=== PATIENT | male | born 1990 | race Caucasian/White ===

== ENCOUNTER 2019-03-25 19:31 | Emergency (ER) | payer OTHER, SELFPAY ==
[2019-03-25 19:32] VITALS: BP 135/85; PULSE 65; RESP 14; TEMP 36.9; O2SAT 100
--- NOTE | 2019-03-25 19:37 | ED.GENADUL_ITS ---
Discharge Plan Disposition Patient Disposition: HOME Condition: Good Discharge Details Chief Complaint: Cellulitis Clinical Impression: Abscess or cellulitis of back Primary Care Provider: [facility] ED Provider: Song Vigil Meds and New Rx's Prescriptions: New cephalexin 500 mg Capsule 500 mg PO Q8H Qty: 15 RF: 0 Discharge Instructions Additional Instructions: Leave dressing in place for 24 hours. May shower after that. Try to leave the wick in for 48 hours. May remove the wick after that. Keep the wound clean, dry, covered. Antibiotic as prescribed for 5 days. Motrin or Tylenol as needed for pain. Follow up with PCP next week if not getting better. Return to ED for fever, chills, worsening pain/swelling/drainage. Referrals: [facility] [Primary Care Provider] - Medical Decision Making Patient with a quarter sized area of firm swelling. There is a little bit of central fluctuance. Suspect will not get a lot of pus from I&D but feel that opening the central area is likely to allow anything that subsequently forms to drain. Discussed risk and benefit with patient. Agreed to proceed with I&D. Low back area prepped with Betadine. Wound area anesthetized with 1% lidocaine with epinephrine. #11 blade used to incise central area. About a 1 cc of thick cottage cheese type material was expressed from the central area. Wound was irrigated. It was then packed with iodoform. Dressing applied. Patient tolerated well. Leave the dressing in place for 24 hours. Try to leave the wick in place for 48 hours. Patient started on Keflex. Wound culture has been sent. Follow-up with primary care next week if not better. Return to ED for fever, chills, worsening pain/swelling/drainage. HPI General Mode of arrival: ambulatory . Date/Time Provider Initiated Documentation: 03/25/19 19:37 . Limitations to Documentation: no limitations . Information obtained by: patient . HPI Narrative: Patient presents to ED with abscess on his lower back. Started about a week ago as a pimple. He has tried squeezing it and has got some material out of it. However, it has continued to get bigger and more painful. He denies fevers or chills. He denies being unwell otherwise. Presents now for evaluation of the area. Related Data Home Medications Medication Instructions Recorded Confirmed cephalexin 500 mg PO Q8H #15 cap 03/25/19 Previous Rx's Medication Instructions Recorded cephalexin 500 mg PO Q8H #15 cap 03/25/19 Allergies Allergy/AdvReac Type Severity Reaction Status Date / Time No Known Allergies Allergy Unverified 03/25/19 19:37 General Stated Complaint: Cellulitis CONNOR: 3 Review of Systems Constitutional Denies chills, Denies fever(s) and Denies weakness Musculoskeletal Denies abnormal gait and Denies numbness Integumentary/Breasts Reports erythema and Reports sores Neurologic Denies abnormal gait, Denies numbness, Denies paresthesias and Denies weakness [facility] Social History Smoking/Tobacco Use Status: Former Tobacco Use Alcohol Intake: current Alcohol Intake frequency: a few times a month Drug use: Never Do you feel safe at home: Yes Do you feel safe in your relationship?: Yes Exam Narrative Exam Narrative: Vitals: Normal Const: WDWN malle in NAD. Neuro: A+O x 3. CN grossly in tact. Normal strength, sensation, gait. Skin: Warm and dry. Area on lower back, midline about level of L3, with erythema and swelling present. Slight central drainage. Course Vital Signs Temperature 98.4 F 03/25/19 19:32 Pulse 65 03/25/19 19:32 Respiratory Rate 14 03/25/19 19:32 Blood Pressure 135/85 03/25/19 19:32 Pulse Oximetry 100 03/25/19 19:32 Temperature 98.4 F 03/25/19 19:32 Temperature Source Skin 03/25/19 19:32 Pulse 65 03/25/19 19:32 Respiratory Rate 14 03/25/19 19:32 Blood Pressure 135/85 03/25/19 19:32 Blood Pressure Position Sitting 03/25/19 19:32 Pulse Oximetry 100 03/25/19 19:32 Oxygen Delivery Method Room Air 03/25/19 19:32 Oxygen Flow Rate 0 03/25/19 19:32 Pain Level 6 03/25/19 19:32 Comment using biol-ease and bacitracin 03/25/19 19:32 Procedures Abscess I/D Site: Back Local Anesthetic: Lidocaine 1% and With Epi Amount of anesthesia used (mL): 1.5 Technique: Incised with #11 Blade Irrigation: Yes Packing used?: Iodoform
[2019-03-25] MEDS: Cephalexin 500 MG CAP PO ×2 (20:10→20:19)
--- NOTE | 2019-03-28 12:27 | W.ED.FU ---
I reviewed wound culture, staph aureus growing that is sensitive to oxacillin. Suspect sensitive to Keflex that was prescribed. I called and spoke with the patient who noted infection was healing well, he had no concerns. I advised the patient to follow-up with his primary or return for any worsening or new concerning symptoms or if infection does not completely resolve by completion of antibiotic.
== END 2019-03-25 20:19 | disposition home or self-care (01) ==
PROVIDERS: Emergency Provider Emergency Medicine
DX: L02.212 Cutaneous abscess of back [any part, except buttock and flank] (principal)
CPT/HCPCS: 10160; 87077; 87070; 87186; 87205

== ENCOUNTER 2019-03-28 22:46 | Emergency (ER) | payer OTHER, SELFPAY ==
[2019-03-28 22:49] VITALS: BP 127/80; PULSE 58; RESP 18; TEMP 36.7; O2SAT 99
--- NOTE | 2019-03-28 22:55 | W.ED.GENAD ---
Discharge Plan Disposition Patient Disposition: HOME Condition: Improving Discharge Details Chief Complaint: Recheck Clinical Impression: Abscess Primary Care Provider: [facility],[place] ED Provider: Claire Lee Home Meds and New Rx's Prescriptions: Continued cephalexin 500 mg Capsule 500 mg PO Q8H Qty: 15 RF: 0 Discharge Instructions Instructions: Abscess (ED) Additional Instructions: Wound appears to be healing well. Continue with wound care as previously advised. Take Keflex as prescribed. If you develop fevers/chills, spreading of redness, increased pain or other new/worsening symptoms please seek care urgently once again. Referrals: [facility] [Primary Care Provider] - Discharge Data Discharge Date/Time-TO BE ENTERED AT DEPARTURE: 03/28/19 23:08 Medical Decision Making Patient presents for help with removal of wick from abscess. Evaluated the wound. Wick appears to have come out. No evidence of retained section. Appears to be healing well. Granulation tissue noted, this is what GF has been trying to removing thinking it was wick. Discussed wound care. Appears to be healing well. Discussed when to seek care urgently once again. He will f/u with PCP. All of questions and concerns were addressed, he is in agreement with this plan. HPI General Mode of arrival: ambulatory. Date/Time Provider Initiated Documentation: 03/28/19 22:47. Limitations to Documentation: no limitations. Information obtained by: patient and family (accompanied by significant other). HPI Narrative: Patient presents for recheck of abscess. Was seen 2 days ago at which time I&D was preformed with wick placement. They were advised to remove wick today but signfiicant other reports that she was unable to remove and came in for assessment. Reports he is feeling well, taking Keflex as prescribed. No fevers/chills, no pain. Related Data Home Medications Medication Instructions Recorded Confirmed cephalexin 500 mg PO Q8H #15 cap 03/25/19 03/28/19 Previous Rx's Medication Instructions Recorded cephalexin 500 mg PO Q8H #15 cap 03/25/19 Allergies Allergy/AdvReac Type Severity Reaction Status Date / Time No Known Allergies Allergy Unverified 03/25/19 19:37 General Stated Complaint: Recheck CONNOR: 4 Review of Systems Constitutional Reports as per HPI, Denies chills and Denies fever(s) Musculoskeletal Reports as per HPI Integumentary/Breasts Reports as per HPI Neurologic Reports as per HPI, Denies sensory deficit and Denies paresthesias [facility] Social History Smoking/Tobacco Use Status: Former Tobacco Use Alcohol Intake: current Alcohol Intake frequency: a few times a month Drug use: Never Do you feel safe at home: Yes Do you feel safe in your relationship?: Yes Exam Const General: cooperative, healthy appearing, comfortable, no acute distress and well developed Nutritional Appearance: average body habitus and well nourished Orientation: alert and awake Resp Effort & Inspection: normal respiratory effort, able to speak in complete sentences and no respiratory distress Cardio Rate: regular rate Rhythm: regular rhythm Skin Wounds: wounds noted (lower back s/p I&D healing well, 8mm in diameter) Neuro General: alert and awake Cognition: normal cognition Speech: speech normal Gait: normal gait Sensory Exam: no sensory deficits noted Psych Appearance: grossly normal and well kempt Mental Status: mental status grossly normal Speech and Movement: speech and movement normal Course Vital Signs Temperature 36.7 C 03/28/19 22:49 Pulse 58 L 03/28/19 22:49 Respiratory Rate 18 03/28/19 22:49 Blood Pressure 127/80 03/28/19 22:49 Pulse Oximetry 99 03/28/19 22:49 Temperature 36.7 C 03/28/19 22:49 Temperature Source Tympanic 03/28/19 22:49 Pulse 58 L 03/28/19 22:49 Respiratory Rate 18 03/28/19 22:49 Respiratory Effort Non-Labored 03/28/19 22:52 Blood Pressure 127/80 03/28/19 22:49 Pulse Oximetry 99 03/28/19 22:49 Oxygen Delivery Method Room Air 03/28/19 22:49 Oxygen Flow Rate 0 03/28/19 22:49 Pain Level 0 03/28/19 22:49
--- NOTE | 2019-03-28 23:06 | ED.GENADUL_ITS ---
Discharge Plan Disposition Patient Disposition: HOME Condition: Improving Discharge Details Chief Complaint: Recheck Clinical Impression: Abscess Primary Care Provider: [facility] ED Provider: Claire Lee Home Meds and New Rx's Prescriptions: Continued cephalexin 500 mg Capsule 500 mg PO Q8H Qty: 15 RF: 0 Discharge Instructions Instructions: Abscess (ED) Additional Instructions: Wound appears to be healing well. Continue with wound care as previously advised. Take Keflex as prescribed. If you develop fevers/chills, spreading of redness, increased pain or other new/worsening symptoms please seek care urgently once again. Referrals: [facility] [Primary Care Provider] - Discharge Data Discharge Date/Time-TO BE ENTERED AT DEPARTURE: 03/28/19 23:08 Medical Decision Making Patient presents for help with removal of wick from abscess. Evaluated the wound. Wick appears to have come out. No evidence of retained section. Appears to be healing well. Granulation tissue noted, this is what GF has been trying to removing thinking it was wick. Discussed wound care. Appears to be healing well. Discussed when to seek care urgently once again. He will f/u with PCP. All of questions and concerns were addressed, he is in agreement with this plan. HPI General Mode of arrival: ambulatory . Date/Time Provider Initiated Documentation: 03/28/19 22:47 . Limitations to Documentation: no limitations . Information obtained by: patient and family (accompanied by significant other) . HPI Narrative: Patient presents for recheck of abscess. Was seen 2 days ago at which time I&D was preformed with wick placement. They were advised to remove wick today but signfiicant other reports that she was unable to remove and came in for assessment. Reports he is feeling well, taking Keflex as prescribed. No fevers/chills, no pain. Related Data Home Medications Medication Instructions Recorded Confirmed cephalexin 500 mg PO Q8H #15 cap 03/25/19 03/28/19 Previous Rx's Medication Instructions Recorded cephalexin 500 mg PO Q8H #15 cap 03/25/19 Allergies Allergy/AdvReac Type Severity Reaction Status Date / Time No Known Allergies Allergy Unverified 03/25/19 19:37 General Stated Complaint: Recheck CONNOR: 4 Review of Systems Constitutional Reports as per HPI, Denies chills and Denies fever(s) Musculoskeletal Reports as per HPI Integumentary/Breasts Reports as per HPI Neurologic Reports as per HPI, Denies sensory deficit and Denies paresthesias [facility] Social History Smoking/Tobacco Use Status: Former Tobacco Use Alcohol Intake: current Alcohol Intake frequency: a few times a month Drug use: Never Do you feel safe at home: Yes Do you feel safe in your relationship?: Yes Exam Const General: cooperative, healthy appearing, comfortable, no acute distress and well developed Nutritional Appearance: average body habitus and well nourished Orientation: alert and awake Resp Effort & Inspection: normal respiratory effort, able to speak in complete sentences and no respiratory distress Cardio Rate: regular rate Rhythm: regular rhythm Skin Wounds: wounds noted (lower back s/p I&D healing well, 8mm in diameter) Neuro General: alert and awake Cognition: normal cognition Speech: speech normal Gait: normal gait Sensory Exam: no sensory deficits noted Psych Appearance: grossly normal and well kempt Mental Status: mental status grossly normal Speech and Movement: speech and movement normal Course Vital Signs Temperature 36.7 C 03/28/19 22:49 Pulse 58 L 03/28/19 22:49 Respiratory Rate 18 03/28/19 22:49 Blood Pressure 127/80 03/28/19 22:49 Pulse Oximetry 99 03/28/19 22:49 Temperature 36.7 C 03/28/19 22:49 Temperature Source Tympanic 03/28/19 22:49 Pulse 58 L 03/28/19 22:49 Respiratory Rate 18 03/28/19 22:49 Respiratory Effort Non-Labored 03/28/19 22:52 Blood Pressure 127/80 03/28/19 22:49 Pulse Oximetry 99 03/28/19 22:49 Oxygen Delivery Method Room Air 03/28/19 22:49 Oxygen Flow Rate 0 03/28/19 22:49 Pain Level 0 03/28/19 22:49
[2019-03-28 23:08] VITALS: BP 127/80; PULSE 58; RESP 18; O2SAT 99
== END 2019-03-28 23:08 | disposition home or self-care (01) ==
PROVIDERS: Emergency Provider Physician Assistant
DX: L02.212 Cutaneous abscess of back [any part, except buttock and flank] (principal)

== ENCOUNTER 2022-06-29 08:22 | Outpatient (CLI) | payer OTHER, SELFPAY ==
--- NOTE | 2022-06-29 08:15 | DI.RAD_ITS ---
Exam(s) XR SHOULDER RT COMPLETE 2+V EXAM: XR SHOULDER RT COMPLETE 2+V CLINICAL HISTORY: right shoulder pain. TECHNIQUE: 2D digital imaging was performed of the right shoulder. Two images were obtained. AP an d axillary views were obtained. COMPARISON: No exams were available for comparison FINDINGS: BONES: No acute fracture is present. No bony destructive lesion is seen. JOINTS: No dislocation present. SOFT TISSUE: Normal. IMPRESSION: Unremarkable radiographs of the right shoulder. DATA REPOSITORY: RADIATION DOSE DELIVERED:
== END 2022-06-29 08:23 | disposition home or self-care (01) ==
LOC: DIORS 08:22
PROVIDERS: Referring Provider Physician Assistant; Visit Provider Student in an Organized Health Care Education/Training Program
DX: M75.21 Bicipital tendinitis, right shoulder (principal); S43.431A Superior glenoid labrum lesion of right shoulder, initial encounter; X58.XXXA Exposure to other specified factors, initial encounter
CPT/HCPCS: 99203; 99204; 73030

== ENCOUNTER → 2022-07-20 14:12 | Outpatient (BNVA) | payer OTHER, SELFPAY | PROVIDERS: Visit Provider Student in an Organized Health Care Education/Training Program | DX: X58.XXXA Exposure to other specified factors, initial encounter (principal); M75.51 Bursitis of right shoulder; S43.431A Superior glenoid labrum lesion of right shoulder, initial encounter; S46.011A Strain of muscle(s) and tendon(s) of the rotator cuff of right shoulder, initial encounter | CPT/HCPCS: 99214 ==

== ENCOUNTER 2022-11-10 05:59 | Day surgery (SDC) | payer OTHER, SELFPAY ==
--- NOTE | 2022-11-09 18:39 | W.ANESPRE ---
General Info Date of Service Date Performed: 11/10/22 Height: 5 ft 8 in Weight: 68.492 kg Body Mass Index (BMI): 22.9 Surgical Procedure: Operation Date: 11/10/22 07:40 Proposed Procedure Side Surgeon p Shoulder Arthroscopy w/Extensive Debridement, Subacromial Decompression and Open Biceps Tenodesis Right Og Hyde MD Meds Allergies and Home Medications Allergies Allergy/AdvReac Type Severity Reaction Status Date / Time No Known Allergies Allergy Verified 11/10/22 06:11 Home Medication Medication Instructions Recorded Unknown [No Known Home Meds] 10/12/22 Current Visit Medications: Current Medications Generic Name Dose Route Start Last Admin Trade Name Freq PRN Reason Stop Dose Admin Ringer's Solution 1,000 mls @ 30 mls/hr 11/10/22 06:00 IV 12/09/22 23:59 INFUSION FLORA Cefazolin Sodium/Dextrose 2 gm in 50 mls @ 100 mls/hr 11/10/22 06:00 Ancef Duplex IVPB 11/10/22 16:00 PREOP FLORA IV Miscellaneous Supplies 1 each 11/10/22 06:00 Iv Access IV 12/09/22 23:59 DIRECTED FLORA Sodium Chloride 0 ml 11/10/22 06:00 Normal Saline Flush 10 Ml Syr IV 12/09/22 23:59 PRN PRN Sodium Chloride 0 ml 11/10/22 06:00 Normal Saline 10 Ml Vial IJ 12/09/22 23:59 DIRECTED PRN Sterile Water 0 ml 11/10/22 06:00 Water,Injection,Sterile 10 Ml Vial IJ 12/09/22 23:59 DIRECTED PRN PFSH Active Problems Active Problems: Problem Status Onset Code Impingement syndrome of right shoulder M75.41 Traumatic tear of right rotator cuff S46.011A Superior labrum [id number] (SLAP) tear of right shoulder S43.431A Gynecomastia N62 Heart murmur R01.1 Cervicalgia M54.2 Tobacco Smoking/Tobacco Use Status: Former Tobacco Use Alcohol Alcohol Intake: current Alcohol intake frequency: a few times a month Substance Use Substance use: Occasionally Substance use type: marijuana Vital Signs and Lab Results Vital Signs Most Recent Vital Signs in EMR: Temp Pulse Resp BP Pulse Ox 36.8 C 68 18 119/78 98 11/10/22 06:12 11/10/22 06:12 11/10/22 06:12 11/10/22 06:12 11/10/22 06:12 Lab Results Blood Type / Crossmatch: No Data to Display Complete Blood Count: No Data to Display Complete Metabolic Panel: No Data to Display Liver Function Panel: No Data to Display Coagulation Panel: No Data to Display Cardiac Panel: No Data to Display Arterial Blood Gas: No Data to Display Venous Blood Gas: No Data to Display Pancreas Panel: No Data to Display Thyroid Panel: No Data to Display Infectious Disease: No Data to Display Blood Cultures: No Data to Display Toxicology Panel: No Data to Display Anesthesia Assessment and Plan Anesthesia History Personal History: No History of Anesthesia Complications Family History: No Family History of Anesthesia Complications Exercise Tolerance Exercise Tolerance: Metabolic Equivalents>4 Cardiac & Pulmonary Exam Cardiac Exam: Normal S1/S2 Heart Sounds Pulmonary Exam: Clear Bilateral Breath Sounds Implantable Cardiac Device Does patient have a Pacemaker or an ICD?: No Airway Exam Known Difficult Airway: No Mallampati Class: 2 Mouth Opening: Normal (> 3cm) Thyromental Distance: Greater than 3 cm Neck Range of Motion: Full ROM Neck Circumference: Normal Teeth Condition: Normal Dentition ASA Classification ASA Score: ASA 2 Emergency Case?: No NPO Status NPO Status: NPO Clears >2 hours, Solids >8 hours Anesthesia Plan Resuscitation Status: Full Code Anesthesia Technique: General Anesthesia Airway Planned: Endotracheal Tube Pain Management: Surgeon and patient request nerve block Monitors Used: Standard Monitors Preoperative Comments:: 32 yo male for shoulder scope. Sig PMHX: former tobacco, occ EtOH/cannabis, cervicalgia. denies major. Plan: GAETT, brachial plxus block.
[2022-11-10] VITALS (12 sets, daily range): BP systolic 104–126; BP diastolic 66–95; PULSE 56–71; RESP 14–18; TEMP 36.2–36.8; O2SAT 94–99; BMI 22.9
[2022-11-10] MEDS: Lactated Ringers 1,000 ML 30 ML IV (06:42)
--- NOTE | 2022-11-10 07:14 | W.ANESNERVE ---
Nerve Block Single Injection Procedure Date and Time Date Performed: 11/10/22 Procedure Start: 07:09 Location Where Procedure Performed Procedure Location: Day Surgery Unit Reason Performed: Postoperative Analgesia Requesting Provider: Og yHde Timeout Performed Timeout Performed: Yes Monitoring Used ECG, Blood Pressure and SpO2 Sterility Sterility: Hand Hygiene, Surgical Cap, Surgical Mask and Chlorhexidine Sedation Given During Procedure Sedation Given (Indicate Dose Given): Versed IV Dose:: 2 mg Patient Mental Status Patient Mental Status: Sedate with meaningful communication Nerve Block 1st Nerve Block: Laterality: Right Block Type: Interscalene (image saved, but not able to be sent at this time. ) Ultrasound Image Saved?: Yes Needle / Catheter Used: 100mm SonoPlex II Local Anesthetic Bolus (Indicate Dose Given): Lidocaine used for local infiltration of skin, Injected in 3-5ml increments after negative blood aspiration, Bupivacaine 0.5% Dose:: 15 mL and Exparel Dose:: 10 mL Additives (Indicate Dose Given): None Ultrasound: Sterile probe cover and gel used Nerve Stimulator: Not Used Paresthesia: None Procedure Tolerated: No Complications Procedure Outcome: Successful Performed By: Alfonso Cooley
[2022-11-10] MEDS: ceFAZolin 2 GM/50 ML BAG IVPB (07:29)
[2022-11-10] MEDS: Bupivacaine 0.5% Pres-Free W/EPI 10 ML VIAL (08:09)
[2022-11-10] MEDS: EPINEPHrine 30 MG/30 ML VIAL (08:11)
--- NOTE | 2022-11-10 08:57 | ROE_ITS ---
Date of service: 11/10/22 Time of Service: 07:30 Operative Note Operative Note DATE OF PROCEDURE: 11/10/22 PRE-OP DIAGNOSIS: Right: 1. Rotator cuff tear 2. LHB tendinopathy 3. Bursitis 4. Impingement POST-OP DIAGNOSIS: same PROCEDURE: Right: 1. Limited debridement, CPT# 89804. This involved using arthroscopic instruments to debride a small amount of anterior interval synovitis and minimal anterior labral and articular supraspinatus fraying. 2. Subacromial decompression with partial acromioplasty, CPT# 54948. This involved using arthroscopic power instruments and a radiofrequency wand to complete a bursectomy and smooth the undersurface of the acromion. SURGEON: Og Hyde [employer] VICE PRESIDENT: Ivory Huerta ANESTHESIA TYPE: Local By Surgeon, General LMA/ETT and Primary Nerve Block Refer to Anesthesia Record ESTIMATED BLOOD LOSS: 10 PATHOLOGY: none sent COMPLICATIONS: None Patient was transported to: PACU Patient's condition: stable Implants: None Indications: The patient was diagnosed with the above conditions and appropriately indicated for surgical intervention. Please see complete medical record for details. Findings: Exam under anesthesia: Full range of motion, no instability Glenohumeral joint: Intact superior labrum, intact biceps anchor. Intact intra- articular biceps tendon with no tearing or injection/inflammation. Minor undersurface supraspinatus articular sided fraying. Intact articular cartilage throughout except for a small anterior superior few millimeter focal defect. Intact subscapularis. Intact anterior labrum with minor fraying. Intact posterior labrum and posterior superior rotator cuff. No loose bodies. Subacromial space: Moderate bursitis. Intact bursal rotator cuff. No significant hook or bone spurring under the acromion except for a single area anterior medially. No distal clavicle impingement on the acromion. Procedure Description: In the operating room, general anesthesia was induced. Bilateral shoulders were examined. The patient was positioned in the beachchair position. All bony prominences were well-padded. Preoperative antibiotics were administered. The shoulder was prepped and draped in the usual sterile fashion. The correct patient, procedure, and side of the procedure were all verified prior to incision. Starting through the posterior portal a standard complete diagnostic arthroscopy was performed of the glenohumeral joint including inspection of the long head of the biceps, anterior and superior labrum, subscapularis tendon, supraspinatus and infraspinatus tendons, and axillary recess. The glenoid and humeral head cartilage as well as the posterior labrum were inspected from an anterior viewing portal. A limited glenohumeral debridement was done using the mechanical shaver and radiofrequency ablator of mild amount of anterior interval synovitis and minimal anterior labral and articular supraspinatus fraying. A probe was used to inspect the biceps tendon and biceps anchor. There was no indication for biceps tenodesis considering the lack of biceps symptoms and normal-appearing arthroscopic evaluation. Starting through the posterior portal, the arthroscope was directed into the subacromial space. A lateral 50 yard line lateral portal was omitted. A combination of power instruments and a radiofrequency ablator were used to debride bursitis anteriorly, posteriorly, and laterally as well as expose and smooth the undersurface acromion including resecting bone spurring anteriorly and somewhat more medially than usual. The coracoacromial ligament was only partially released. The bursectomy was completed and the rotator cuff was inspected and found to be intact. The arthroscope was driven medially and the distal aspect of the clavicle was depressed and mobile relative to the medial margin of the acromion without any visible impingement or underside impingement on the rotator cuff. A formal distal clavicle excision was not indicated. The shoulder was drained of arthroscopic fluid. All portal sites were copiously irrigated. These incisions were closed using 3-0 Monocryl in a buried fashion and then covered with Mastisol, Steri-Strips, Xeroform, dry gauze, and ABDs. The dressings were covered and secured with Medipore tape. The operative extremity was placed into a sling for immobilization. The patient awoke from anesthesia without complication and was transferred to the recovery room in a stable condition.
--- NOTE | 2022-11-10 09:02 | W.PM.DSUDISC ---
Date of service: 11/10/22 Time of Service: 13:00 Discharge Plan Disposition Patient Disposition: Home Discharge Details Attending Provider: Og Hyde Primary Care Provider: Unknown,Unknown Home Meds and New Rx's Prescriptions: New naproxen 250 mg tablet 250 - 500 mg PO BID PRNQty: 40 0RF Rx Instructions: take with a meal aspirin 81 mg tablet,delayed release (DR/EC) 81 mg PO DAILY 7 Days Qty: 7 0RF oxycodone 5 mg tablet 5 - 10 mg PO Q4H MDD 30 mg PRN (Reason: moderate to severe pain) Qty: 18 0RF Discharge Instructions Additional Instructions: Surgery: Right shoulder arthroscopy with limited debridement and subacromial decompression. Activity: You should gradually increase range of motion motion and use of your shoulder. You may use your shoulder for all regular activities. Avoid any heavy lifting overhead or away from the body for about 6-8 weeks. You may use the sling whenever you are out of the house for a couple weeks. At home it is best to remove the sling and rest the arm on a pillow at your side or support the operative side with your other hand. A physical therapy prescription will be sent electronically to begin in about 3 weeks. Prescriptions: Aspirin 81 mg take 1 daily to prevent a blood clot for 7 days Naproxen 250 mg take 1-2 every 12 hours with a meal as needed for moderate pain Oxycodone 5 mg take 1-2 every 4-6 hours as needed for severe pain You may use [id number] Tylenol (acetaminophen) as needed for mild pain. These pain medications may be taken all at once or in different combinations as needed. Also, recommend Colace (docusate) as a stool softener as surgery and pain medicine cause constipation. You may try [id number] diphenhydramine (Benadryl) 25-50 mg nightly as a sleep aid Dressings: Remove shoulder bandage after 3 days. Leave the sticky Steri-Strips in place until they fall off or remove them after you shower. Cover the incisions with Band-Aids or leave them open to air. You may shower after 5 days. Follow-up: 10-[address] Hyde You may take off the leg compression stockings this evening at home. You may also leave them on a few days longer if you have a history of leg swelling or edema. Let us know right away if you develop any redness, drainage, fevers, chest pain, or trouble breathing. Do not drink alcohol or drive for at least 24 hours after anesthesia. Please call the office during business hours with any questions or concerns. Discharge Orders Discharge Orders: Discharge Order (Routine); Ordered 11/10/22 Ordered By: Og Hyde DS: Diagnosis Discharge Diagnosis (1) Impingement syndrome of right shoulder: Status: Acute
--- NOTE | 2022-11-10 09:46 | W.ANESPOSTOP ---
Postoperative Evaluation Date, Time and Location Date Performed: 11/10/22 Time Performed: 09:20 Patient Location: PACU Vital Signs Most Recent Imported Vital Signs: Most Recent Vital Signs Temp Pulse Resp BP Pulse Ox 36.2 C L 56 L 16 115/77 97 11/10/22 09:30 11/10/22 09:30 11/10/22 09:30 11/10/22 09:30 11/10/22 09:30 Pain Score Most Recent Pain Score: Most Recent Pain Score Pain Level 0 11/10/22 09:30 Assessment Mental Status: Awake (Alert & Oriented to Patient Baseline) Airway and Respiratory Function: Patent airway with normal (patient baseline) respiratory exam Cardiovascular Function: Hemodynamically Stable Hydration Status: Adequately Hydrated Nausea & Vomiting: No Nausea or Vomiting Pain: Pt. Denies Any Pain Peripheral Nerve Block: Regional nerve block not resolved at time of post operative discharge
== END 2022-11-10 10:50 | disposition home or self-care (01) ==
PROVIDERS: Visit Provider Student in an Organized Health Care Education/Training Program
PROC: (CPT 29805; principal; 2022-11-10 07:30)
DX: M75.41 Impingement syndrome of right shoulder (principal); M75.51 Bursitis of right shoulder; M75.101 Unspecified rotator cuff tear or rupture of right shoulder, not specified as traumatic; M75.21 Bicipital tendinitis, right shoulder
CPT/HCPCS: 29822; 29826; 76942; J0131; J0690; J1100; J1885; J2250; J2405; J2704